=== PATIENT | male | born 1975 | race Caucasian/White ===

== ENCOUNTER → 2020-11-01 | Outpatient (CLI) | payer OTHER ==
--- NOTE | 2020-11-02 16:43 | REP ---
INDICATION: RIGHT TESTI LUMP COMPARISON: None. TECHNIQUE: Mg scale and color Doppler evaluation using linear and curved array transducer with color Doppler evaluation. FINDINGS: The bilateral testicles are normal in contour, size, echogenicity, vascularity and overall appearance. There is no evidence for intratesticular mass lesion, infectious/inflammatory process, or torsion. Right epididymal cysts measure up to 11 x 3 x 10 mm and left epididymal cysts measure up to 6 x 5 x 5 mm. Small nonspecific simple appearing right hydrocele is also identified along with left-sided varicoceles measuring up to 3.3 mm diameter on Valsalva. No left-sided hydrocele or varicocele noted. Right testicle measures 3.9 x 2.7 x 2.9 cm. Left testicle measures 5.1 x 2.4 x 3.0 cm. IMPRESSION: 1. Few bilateral epididymal cysts and mild early right-sided varicoceles possibly related to patient's symptoms. 2. Normal bilateral testicles. <Electronically signed by Oscar Montoya > 11/02/20 [id number]
== END ==
LOC: M RAD 12:23
PROVIDERS: ATTEND Family Medicine
DX: N50.3 Cyst of epididymis (principal); D40.11 Neoplasm of uncertain behavior of right testis

== ENCOUNTER → 2020-11-25 | Outpatient (CLI) | payer OTHER ==
--- NOTE | 2020-11-26 04:03 | REP ---
INDICATION: R93.429 ABD FINDINGS ON IMAGING STUDY COMPARISON: None TECHNIQUE: Real time huizar scale ultrasound examination using curved array transducer. FINDINGS: Right kidney is normal in appearance and position measuring 13.4 x 7.0 x 6.3 cm without hydronephrosis, nephrolithiasis, cystic or renal mass lesion. Left kidney is not identified. Bladder is unremarkable. IMPRESSION: Normal right kidney. Left kidney not visualized within the renal fossa. <Electronically signed by Oscar Montoya > 11/26/20 [id number]
== END ==
LOC: M RAD 12:37
PROVIDERS: ATTEND Family Medicine
DX: R93.429 Abnormal radiologic findings on diagnostic imaging of unspecified kidney (principal)